=== PATIENT | male | born 1960 | race Caucasian/White ===

== ENCOUNTER → 2019-02-06 10:43 | Outpatient (CLI) | payer BC, SELFPAY ==
--- NOTE | 2019-02-06 10:49 | XR_ITS ---
PROCEDURE: XR KNEE RT 3V CLINICAL INDICATION: BILAT KNEE PAIN COMPARISON: [id number] KNEE-3 VIEWS-RT from 04/28/2013 FINDINGS: No fracture or dislocation. No lytic or blastic change. There is normal mineralization. There are mild to moderate osteoarthritic changes of the medial compartment and patellofemoral joint which has progressed since 04/28/2013. Other findings:None. IMPRESSION: Osteoarthritic change of the medial compartment and patellofemoral joint which is worse compared to the previous exam Dictated by: Talib Tran MD 02/06/2019 12:28 Electronically signed by Talib Tran MD in [place] 02/06/2019 12:28
--- NOTE | 2019-02-06 10:49 | XR_ITS ---
PROCEDURE: XR KNEE LT 3V CLINICAL INDICATION: BILAT KNEE PAIN COMPARISON: [id number] KNEE-3 VIEWS-RT from 04/28/2013 FINDINGS: No fracture or dislocation. No lytic or blastic change. There is normal mineralization. Igrr-rd-[id number] osteoarthritic changes are present at the medial compartment and patellofemoral joint. Other findings:None. 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
== END ==
PROVIDERS: PCP Family Medicine; Visit Provider Family Medicine
DX: M25.562 Pain in left knee (principal); M25.561 Pain in right knee
CPT/HCPCS: 73562

== ENCOUNTER 2025-01-20 14:47 | Outpatient (CLI) | payer BC, SELFPAY ==
[2025-01-20 21:24] LABS: Hematocrit 45.9 % (42.0-52.0); Hemoglobin 14.9 g/dL (14.1-18.0); Immature Granulocytes % 0.3 %; Mean Corpuscular HGB Conc 32.5 g/dL (31.8-35.4); Mean Corpuscular Hemoglobin 27.7 pg (27.0-31.2); Mean Corpuscular Volume 85.5 fl (80-94); Nucleated Red Blood Cells % 0 %; Platelet Count 208 K/mm3 (142-424); Red Blood Count 5.37 M/mm3 (4.60-6.20); Red Cell Distribution Width-SD 43.0 fL; White Blood Count 7.0 K/mm3 (4.8-10.8)
[2025-01-20 21:47] LABS: Alanine Aminotransferase 25 U/L (12-78); Albumin Level 4.1 g/dl (3.5-5.0); Albumin/Globulin Ratio 1.4 (1.1-1.8); Alkaline Phosphatase 134 U/L (38-126); Anion Gap 14.4 mEq/L (5-15); Aspartate Amino Transferase 28 U/L (17-59); Bilirubin,Total 0.8 mg/dl (0.2-1.3); Blood Urea Nitrogen 19 mg/dl (9-20); Calcium 9.5 mg/dl (8.4-10.2); Carbon Dioxide 23 mmol/L (22.0-30.0); Chloride 106 mmol/L (98-107); Cholesterol 142 mg/dl (140-200); Creatinine,Serum 1.20 mg/dl (0.66-1.25); Estimated Glomerular Filt Rate 61 ml/min (>60); GFR (African American) 74 ML/MIN (>60); Globulin 2.9 g/dL (1.3-3.2); Glucose 115 mg/dl (74-100); HDL Cholesterol 56 mg/dl (40-60); Potassium 4.4 mmoL/L (3.5-5.1); Sodium 139 mmol/L (136-145); Total Protein,Serum 7.0 g/dl (6.3-8.2); Triglycerides 113 mg/dl (30-150)
[2025-01-20 22:18] LABS: Thyroid Stimulating Hormone 1.59 uIU/mL (0.465-4.68)
[2025-01-20 22:36] LABS: Hepatitis C Ab Qual. W/ RFX NEGATIVE (Negative)
[2025-01-21 13:01] LABS: Hemoglobin A1C 5.3 % (4.0-6.0)
[2025-01-22 04:23] LABS: Hepatitis B Surface Antigen Negative (Negative)
== END 2025-01-20 23:59 | disposition home or self-care (01) ==
LOC: LAB.DROPOF 01-21 18:14
PROVIDERS: PCP Student in an Organized Health Care Education/Training Program; Visit Provider Nurse Practitioner Family
DX: F41.9 Anxiety disorder, unspecified (principal); Z11.59 Encounter for screening for other viral diseases; E66.9 Obesity, unspecified; I10 Essential (primary) hypertension; Z12.5 Encounter for screening for malignant neoplasm of prostate; R73.09 Other abnormal glucose
CPT/HCPCS: 80053; 80061; 83036; 84443; 85025; 86803; 87340; 87389; G0103